=== PATIENT | male | born 1950 | race Caucasian/White ===

== ENCOUNTER → 2018-12-04 | Day surgery (SDC) | payer MEDICARE ==
[~2018-12-04] MED LIST: ESMOLOL HCL 100MG/10ML 10 MG/ML VIAL ONE; FENTANYL CITRATE/PF 100MCG/2 ML INJ ONE; GLUCAGON FOR INJ 1 MG VIAL ONE; IBUPROFEN PO; MIDAZOLAM HCL 2 MG/2 ML VIAL ONE; PROPOFOL IV EMULSION 10 MG/ML 50 ML VIAL ONE
[2018-12-04 14:00] VITALS: BP 115/80
--- NOTE | 2018-12-04 20:13 | Operative Report ---
DATE OF PROCEDURE: 12/04/2018 SURGEON: Manoj Key MD PROCEDURE: Colonoscopy and polypectomy. INDICATIONS FOR COLONOSCOPY: Surveillance colonoscopy, personal history of colon polyps. MEDICATIONS: The patient was done under MAC, please see anesthesiologist's note. PROCEDURE IN DETAIL: With the patient in left lateral decubitus position, the flexible fiberoptic Olympus colonoscope was inserted into the rectum with ease and advanced all the way to the cecum. The scope was then withdrawn slowly. Mucosa overlying the cecum, ascending colon, and transverse colon appeared to be within normal limits. Diverticular disease was noted in the distal descending and the sigmoid colon. One polyp was snared and one polyp was hot biopsied from the sigmoid colon. One polyp was snared and two polyps were hot biopsied from the rectum. The scope was then retroflexed into the distal rectum and moderate-sized internal hemorrhoids were noted, none of which was actively bleeding. The scope was then straightened out, it was subsequently withdrawn. The patient tolerated the procedure well. IMPRESSION: 1. Diverticulosis. 2. Sigmoid colon polyps x2, one snared and one hot biopsied. 3. Rectal polyps x3, one snared and 2 hot biopsied. 4. Internal hemorrhoids, none actively bleeding. PLAN: Follow up histology. Initiate high-fiber, low-fat diet. Initiate high-fiber supplement. The patient might benefit from a followup colonoscopy in 3 years. Manoj Key [place] [facility] [place][phone] cc: Robyn Ramirez MD
--- OUTSIDE RECORDS SUMMARY | 2018-12-05 10:57 | XMS REPORT ---
Author Author Robyn Ramirez Organization [employer] Address Unknown Phone Unavailable Care Team Providers Care Laborer Demolition Name Role Phone Robyn Ramirez CP Unavailable Allergies, Adverse Reactions, Alerts Substance Reaction Event Type N.K.D.A. Info Not Available Non Drug Allergy Problems Problem Type Condition Code Onset Dates Condition Status Assessment Hypertensive heart disease without heart failure I11.9 Active Problem Erectile dysfunction following radical prostatectomy N52.31 Active Assessment Mixed hyperlipidemia E78.2 Active Assessment Calcaneal spur of right foot M77.31 Active Problem Obstructive sleep apnea syndrome G47.33 Active Problem S/P prostatectomy Z90.79 Active Problem Hypertensive heart disease without heart failure I11.9 Active Problem Hyperglycemia R73.9 Active Problem Stress incontinence N39.3 Active Problem Malignant neoplasm of prostate C61 Active Problem Mixed hyperlipidemia E78.2 Active Medications Medication Code System Code Instructions Start Date End Date Status Dosage Lisinopril [facility] 98088399915 10 mg Orally Once a day February 04, 2016 Active 1 tablet Lipitor ND 99022707467 10 mg Orally Once a day November 20, 2017 Active 1 tablet Advil [facility] 71772163223 200 MG Orally every 6 hrs Active 1 capsule as needed Vital Signs Date/Time: December 04, 2017 BMI 29.12 Index Weight 233 lbs Height 75 in Cardiac Monitoring Heart Rate 64 /min Blood Pressure Diastolic 84 mm Hg Blood Pressure Systolic 144 mm Hg Results Name Result Date Reference Range Unit Abnormality Flag Calcaneus- Right Xray Summary Purpose [employer] Submission
--- OUTSIDE RECORDS SUMMARY | 2018-12-05 10:57 | XMS REPORT ---
Author Author Marilou Mojica Organization [employer] Address Unknown Phone Unavailable Care Team Providers Care Shipping Specialist Name Role Phone Marilou Mojica CP Unavailable Encounters Encounter Location Date [facility] November 19, 2015 Problems Problem Type Condition ICD-9 Code Onset Dates Condition Status Assessment Abnormal EKG R94.31 Active Problem Obstructive sleep apnea syndrome G47.33 Active Problem Malignant neoplasm of prostate C61 Active Problem Mixed hyperlipidemia E78.2 Active Problem Elevated blood pressure (not hypertension) R03.0 Active Problem Abnormal EKG R94.31 Active Problem S/P prostatectomy Z90.79 Active Problem BMI 29.0-29.9,adult Z68.29 Active Social History Social History Element Qualifiers Date Reported children . 2 November 01, 2015 Tobacco Use: . Are you a: former smoker November 01, 2015 Marital Status: . 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
--- OUTSIDE RECORDS SUMMARY | 2018-12-05 10:57 | XMS REPORT | Continuity of Care Document ---
Author Author [facility] Interface Address Unknown Phone Unavailable Problems Problem Status Onset Date Classification Date Reported Comments Source C61 - MALIGNANT NEOPLASM OF PROSTATE R31 Active 02/07/2016 [facility] [place] Erectile dysfunction following radical prostatectomy Active Problem 11/23/2018 [facility] Calcaneal spur of right foot Active Diagnosis 02/23/2018 [facility] Obstructive sleep apnea syndrome Active Problem 11/23/2018 [facility] S/P prostatectomy Active Problem 11/23/2018 [facility] Hypertensive heart disease without heart failure Active Problem 11/23/2018 [facility] Hyperglycemia Active Problem 11/23/2018 [facility] Stress incontinence Active Problem 11/23/2018 [facility] Malignant neoplasm of prostate Active Problem 11/23/2018 [facility] Mixed hyperlipidemia Active Problem 11/23/2018 [facility] Physical exam Active Diagnosis 11/19/2018 [facility] Skin tag Active Diagnosis 11/16/2017 [facility] Left lower quadrant pain Active Diagnosis 05/31/2018 [facility] Abnormal EKG Active Diagnosis 11/23/2018 [facility] Elevated blood pressure Active Problem 01/21/2016 [facility] BMI 29.0-29.9,adult Active Problem 01/21/2016 [facility] Sleep apnea syndrome Active Diagnosis 03/29/2016 [facility] Essential hypertension with goal blood pressure less than 130\/85 Active Diagnosis 12/06/2015 [facility] Hematuria Active Problem 08/23/2016 [facility] Cataracts, bilateral Active Problem 08/23/2016 [facility] BMI 28.0-28.9,adult Active Problem 08/23/2016 [facility] Encounter to discuss test results Active Diagnosis 02/08/2016 [facility] Hx of prostatic malignancy Active Problem 11/23/2018 [facility] Aortic dilatation Active Problem 11/23/2018 [facility] Impotence Active Problem 11/23/2018 [facility] Superior glenoid labrum lesion of unspecified shoulder, initial encounter Active Diagnosis 11/19/2018 [facility] Polyp of colon, unspecified part of colon, unspecified type Active Diagnosis 11/19/2018 [facility] Medications Medication Details Route Status Patient Instructions Ordering Provider Order Date Source Cialis 1 tablet Orally Active 20 mg Orally Once a day PRN Ghebranious 11/06/2018 [facility] Lipitor 1 tablet Orally Active 10 mg Orally Once a day LAST REFILL, NEEDS TO BE SEEN Ghebranious 11/20/2017 [facility] Lisinopril 1 tablet Orally Active 10 mg Orally Once a day Ghebranious 02/04/2016 [facility] Lisinopril 1 tablet Orally Active 10 MG Orally Once a day Yunior 02/04/2016 [facility] Advil 1 capsule as needed Orally Active 200 MG Orally every 6 hrs Ghebranious [facility] Advil 1 capsule as needed Orally Active 200 MG Orally every 6 hrs [facility] Atorvastatin Calcium TAKE ONE TABLET BY MOUTH ONCE DAILY FOR 30 DAYS NA Active 20MG [facility] Allergies, Adverse Reactions, Alerts Substance Category Reaction Severity Reaction type Status Date Reported Comments Source N.K.D.A. Adverse Reaction Info Not Available Adverse Reaction Active 11/06/2018 [facility] Immunizations Immunization Date Given Site Status Last Updated Comments Source Results Order Name Results Value Reference Range Date Interpretation Comments Source Abdomen/Pelvis w/wo IV contrast CT Abdomen/Pelvis w/wo IV contrast CT CT ABDOMEN AND PELVIS WITH CONTRAST HISTORY: 65-year-old male with a malignant neoplasm of the prostate and a history of hematuria. Status post prostatectomy in 2009 and completion of radiation therapy September 2010. PROCEDURE: CT scan of the abdomen and pelvis with contrast was done. Creatinine level was 0.9 mg/dl and eGFR was 89 ml/min. Dilute oral and IV contrast, 100 cc Omnipaque 300 used. Postcontrast and delayed series were obtained with coronal and sagittal reformats. The CT dose was 1785 mGy/cm. Comparison: None. Abdomen findings: The bases of both lung appear normal. The liver has normal morphology and homogeneous attenuation. The parenchymal attenuation is low with Hounsfield units in the range of 30-35 consistent with steatosis. The gallbladder and bile ducts are unremarkable. The pancreas has normal attenuation. The spleen has normal volume and expected enhancement. The stomach, duodenum, small bowel, appendiceal region and colon are normal. The appendix is normal. Left renal nonenhancing 1.8 x 1.2 cm area with Hounsfield units lower than 20 suggests a cyst. No lithiasis or obstructive renal disease noted. Renal morphology is otherwise normal. Adrenals have normal morphology. The abdominal aorta and iliac vessels appear normal in caliber. There is no retroperitoneal adenopathy. Osseous structures, segments of the thoracic and lumbar spine appear normal, lower lumbar disc disease noted. Pelvic findings: The urinary bladder is unremarkable with mild thickened martin. Status post prostatectomy. No pelvic mass or enhancing adenopathy is seen. The inguinal regions are negative. IMPRESSION: No acute abdominal or pelvic abnormality. Hepatic steatosis. Left renal 1.8 cm nonenhancing circumscribed mass consistent with a cyst. Status post prostatectomy and the prostate bed is unremarkable. 03/01/2016 - - Read by: Aniceto Back MD Dictated Date/time: 03/01/16 10:24 Electronically Signed by: Aniceto Back 03/01/16 10:36 FINAL REPORT [facility] Vital Signs Vital Sign Value Date Comments Source Weight 238 11/06/2018 [facility] Height 75 11/06/2018 [facility] Heart Rate 82 11/06/2018 [facility] Diastolic (mm Hg) 76 11/06/2018 [facility] Systolic (mm Hg) 124 11/06/2018 [facility] Weight 238 05/14/2018 [facility] Height 75 05/14/2018 [facility] Temperature Oral (F) 97.7 F 05/14/2018 [facility] Heart Rate 70 05/14/2018 [facility] Diastolic (mm Hg) 94 05/14/2018 [facility] Systolic (mm Hg) 150 05/14/2018 [facility] Weight 233 12/04/2017 [facility] Height 75 12/04/2017 [facility] Heart Rate 64 12/04/2017 [facility] Diastolic (mm Hg) 84 12/04/2017 [facility] Systolic (mm Hg) 144 12/04/2017 [facility] Weight 236 11/20/2017 [facility] Height 75 11/20/2017 [facility] Heart Rate 68 11/20/2017 [facility] Diastolic (mm Hg) 76 11/20/2017 [facility] Systolic (mm Hg) 124 11/20/2017 [facility] Weight 232 11/06/2017 [facility] Height 75 11/06/2017 [facility] Heart Rate 68 11/06/2017 [facility] Diastolic (mm Hg) 86 11/06/2017 [facility] Systolic (mm Hg) 144 11/06/2017 [facility] Weight 246 08/21/2016 [facility] Height 75 08/21/2016 [facility] Heart Rate 77 08/21/2016 [facility] Diastolic (mm Hg) 84 08/21/2016 [facility] Systolic (mm Hg) 140 08/21/2016 [facility] Weight 238 07/20/2016 [facility] Height 75 07/20/2016 [facility] Heart Rate 66 07/20/2016 [facility] Diastolic (mm Hg) 88 07/20/2016 [facility] Systolic (mm Hg) 140 07/20/2016 [facility] Weight 234 04/10/2016 [facility] Height 75 04/10/2016 [facility] Heart Rate 70 04/10/2016 [facility] Diastolic (mm Hg) 68 04/10/2016 [facility] Systolic (mm Hg) 105 04/10/2016 [facility] Weight 230 02/04/2016 [facility] Height 75 02/04/2016 [facility] Heart Rate 82 02/04/2016 [facility] Diastolic (mm Hg) 80 02/04/2016 [facility] Systolic (mm Hg) 144 02/04/2016 [facility] Weight 231 01/19/2016 [facility] Height 75 01/19/2016 [facility] Weight 231 12/03/2015 [facility] Height 75 12/03/2015 [facility] Heart Rate 80 12/03/2015 [facility] Diastolic (mm Hg) 80 12/03/2015 [facility] Systolic (mm Hg) 140 12/03/2015 [facility] Encounters Location Location Details Encounter Type Encounter Number Reason For Visit Attending Provider ADM Date DC Date Status Source [facility] E[facility] / [facility] [id number] 11/19/2015 11/19/2015 [facility] / [place] [id number] 11/19/2015 11/19/2015 [facility] ECHO / [place] [id number] 11/19/2015 11/19/2015 [facility] ECHO / [place] [id number] 11/19/2015 11/19/2015 [facility] / [place] [id number] 11/19/2015 11/19/2015 [facility] / [place] [id number] 11/19/2015 11/19/2015 [facility] / [place] [id number] 11/19/2015 11/19/2015 [facility] ECHO / [place] [id number] 11/19/2015 11/19/2015 [facility] ECHO / [place] [id number] 11/19/2015 11/19/2015 [facility] echo / lab results [id number] 12/03/2015 12/03/2015 [facility] echo / lab results [id number] 12/03/2015 12/03/2015 [facility] echo / lab results [id number] 12/03/2015 12/03/2015 [facility] echo / lab results [id number] 12/03/2015 12/03/2015 [facility] echo / lab results [id number] 12/03/2015 12/03/2015 [facility] echo / lab results [id number] 12/03/2015 12/03/2015 [facility] echo / lab results [id number] 12/03/2015 12/03/2015 [facility] echo / lab results [id number] 12/03/2015 12/03/2015 [facility] Home Sleep Study [id number] 12/08/2015 12/08/2015 [facility] Home Sleep Study [id number] 12/08/2015 12/08/2015 [facility] Home Sleep Study [id number] 12/08/2015 12/08/2015 [facility] Home Sleep Study [id number] 12/08/2015 12/08/2015 [facility] Home Sleep Study [id number] 12/08/2015 12/08/2015 [facility] Home Sleep Study [id number] 12/08/2015 12/08/2015 [facility] Home Sleep Study [id number] 12/08/2015 12/08/2015 [facility] Cardiolyte Stress Test [id number] 01/19/2016 01/19/2016 [facility] Cardiolyte Stress Test [id number] 01/19/2016 01/19/2016 [facility] Cardiolyte Stress Test [id number] 01/19/2016 01/19/2016 [facility] Cardiolyte Stress Test [id number] 01/19/2016 01/19/2016 [facility] Cardiolyte Stress Test [id number] 01/19/2016 01/19/2016 [facility] Cardiolyte Stress Test [id number] 01/19/2016 01/19/2016 [facility] Stress test results [id number] 02/04/2016 02/04/2016 [facility] Stress test results [id number] 02/04/2016 02/04/2016 [facility] Stress test results [id number] 02/04/2016 02/04/2016 [facility] Stress test results [id number] 02/04/2016 02/04/2016 [facility] Stress test results [id number] 02/04/2016 02/04/2016 [facility] [id number] Allie Chen 03/01/2016 03/02/2016 [facility] Night 2 Sleep Study [id number] 03/28/2016 03/28/2016 [facility] Night 2 Sleep Study [id number] 03/28/2016 03/28/2016 [facility] Night 2 Sleep Study [id number] 03/28/2016 03/28/2016 [facility] Night 2 Sleep Study [id number] 03/28/2016 03/28/2016 [facility] CPAP Follow Up [id number] 04/10/2016 04/10/2016 [facility] CPAP Follow Up [id number] 04/10/2016 04/10/2016 [facility] CPAP Follow Up [id number] 04/10/2016 04/10/2016 [facility] CPAP follow up [id number] 07/20/2016 07/20/2016 [facility] CPAP follow up [id number] 07/20/2016 07/20/2016 [facility] results follow up [id number] 08/21/2016 08/21/2016 [facility] Outpatient [id number] ALLIE CHEN [facility] Procedure Code Date Perfomer Comments Source
--- OUTSIDE RECORDS SUMMARY | 2018-12-05 10:57 | XMS REPORT ---
Author Author Robyn Ramirez Organization eClinicalWorks Address Unknown Phone Unavailable Care Team Providers Care Netbackup Engineer Name Role Phone Robyn Ramirez CP Unavailable Allergies No Known Allergies Problems Problem Type Condition Code Onset Dates Condition Status Problem Erectile dysfunction following radical prostatectomy N52.31 Active Assessment Calcaneal spur of right foot M77.31 Active Problem Obstructive sleep apnea syndrome G47.33 Active Problem S/P prostatectomy Z90.79 Active Problem Hypertensive heart disease without heart failure I11.9 Active Problem Hyperglycemia R73.9 Active Problem Stress incontinence N39.3 Active Problem Malignant neoplasm of prostate C61 Active Problem Mixed hyperlipidemia E78.2 Active Medications No Known Medications Results No Known Results Summary Purpose eClinicalWorks Submission
--- OUTSIDE RECORDS SUMMARY | 2018-12-05 10:57 | XMS REPORT ---
Author Author Marilou Mojica Organization eClinicalWorks Address Unknown Phone Unavailable Care Team Providers Care Broadband Engineer Name Role Phone Marilou Mojica CP Unavailable Encounters Encounter Location Date ECHO / MARILOU [facility] November 19, 2015 echo / lab results [facility] December 03, 2015 Home Sleep Study [facility] December 08, 2015 Problems Problem Type Condition ICD-9 Code Onset Dates Condition Status Assessment Sleep apnea syndrome G47.30 Active Problem Obstructive sleep apnea syndrome G47.33 Active Problem Malignant neoplasm of prostate C61 Active Problem Mixed hyperlipidemia E78.2 Active Problem Elevated blood pressure (not hypertension) R03.0 Active Problem Abnormal EKG R94.31 Active Problem S/P prostatectomy Z90.79 Active Problem BMI 29.0-29.9,adult Z68.29 Active Medications Medication Code System Code Instructions Start Date End Date Status Dosage Advil MEDISPAN [address]-93 200 MG Orally every 6 hrs Active 1 capsule as needed Social History Social History Element Qualifiers Date Reported children . 2 December 03, 2015 Tobacco Use: . Are you a: former smoker December 03, 2015 Marital Status: . 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
--- OUTSIDE RECORDS SUMMARY | 2018-12-05 10:57 | XMS REPORT ---
Author Author Usman Morgan Organization eClinicalWorks Address Unknown Phone Unavailable Care Team Providers Care Saddle Mechanic Name Role Phone Usman Morgan CP Unavailable Allergies, Adverse Reactions, Alerts Substance Reaction Event Type N.K.D.A. Info Not Available Non Drug Allergy Problems Problem Type Condition Code Onset Dates Condition Status Problem Erectile dysfunction following radical prostatectomy N52.31 Active Assessment Left lower quadrant pain R10.32 Active Problem Obstructive sleep apnea syndrome G47.33 Active Problem S/P prostatectomy Z90.79 Active Problem Hypertensive heart disease without heart failure I11.9 Active Problem Hyperglycemia R73.9 Active Problem Stress incontinence N39.3 Active Problem Malignant neoplasm of prostate C61 Active Problem Mixed hyperlipidemia E78.2 Active Medications Medication Code System Code Instructions Start Date End Date Status Dosage Lisinopril [facility] 43416948823 10 mg Orally Once a day February 04, 2016 Active 1 tablet Lipitor [facility] NAM[facility] 79366824690 10 mg Orally Once a day LAST REFILL, NEEDS TO BE SEEN November 20, 2017 Active 1 tablet Advil [facility] NAMED [facility] 71140538166 200 MG Orally every 6 hrs Active 1 capsule as needed Vital Signs Date/Time: May 14, 2018 BMI 29.74 Index Weight 238 lbs Height 75 in Temperature 97.7 F Cardiac Monitoring Heart Rate 70 /min Blood Pressure Diastolic 94 mm Hg Blood Pressure Systolic 150 mm Hg Results No Known Results Summary Purpose eClinicalWorks Submission
--- OUTSIDE RECORDS SUMMARY | 2018-12-05 10:57 | XMS REPORT ---
Author Author Marilou Mojica [facility] eClinicalWorks Address Unknown Phone Unavailable Care Team Providers Care Cleaning Associate Name Role Phone Marilou Mojica CP Unavailable Encounters Encounter Location Date Cardiolyte Stress Test [facility] January 19, 2016 Stress test results [facility] February 04, 2016 Night 2 Sleep Study [facility] Mar 27, 2016 ECHO / MARILOU [facility] November 19, 2015 echo / lab results [facility] December 03, 2015 Home Sleep Study [facility] December 08, 2015 Problems Problem Type Condition ICD-9 Code Onset Dates Condition Status Problem Abnormal EKG R94.31 Active Assessment Sleep apnea syndrome G47.30 Active Problem Hypertensive heart disease without heart failure I11.9 Active Problem BMI 28.0-28.9,adult Z68.28 Active Problem Hematuria R31.9 Active Problem Malignant neoplasm of prostate C61 Active Problem S/P prostatectomy Z90.79 Active Problem Mixed hyperlipidemia E78.2 Active Problem Obstructive sleep apnea syndrome G47.33 Active Medications Medication Code System Code Instructions Start Date End Date Status Dosage Advil MEDISPAN [address]-18 200 MG Orally every 6 hrs Active 1 capsule as needed Lisinopril MEDISPAN [address]-12 10 mg Orally Once a day February 04, 2016 Active 1 tablet Social History Social History Element Qualifiers Date Reported Ethnicity . Status , Is khmer your primary language? Yes February 04, 2016 children . 2 February 04, 2016 Tobacco Use: . Are you a: former smoker February 04, 2016 Marital Status: . Aparna February 04, 2016 Caffeine intake? . Status: Yes February 04, 2016 Do you exercise? . 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
--- OUTSIDE RECORDS SUMMARY | 2018-12-05 10:57 | XMS REPORT ---
Author Author Marilou Mojica [facility] eClinicalWorks Address Unknown Phone Unavailable Care Team Providers Care Charge Weigher Name Role Phone Marilou Mojica CP Unavailable Allergies, Adverse Reactions, Alerts Substance Reaction Event Type N.K.D.A. Info Not Available Non Drug Allergy Encounters Encounter Location Date Cardiolyte Stress Test [facility] January 19, 2016 Stress test results [facility] February 04, 2016 Night 2 Sleep Study [facility] Mar 27, 2016 CPAP Follow Up [facility] Apr 10, 2016 ECHO / MARILOU [facility] November 19, 2015 echo / lab results [facility] December 03, 2015 Home Sleep Study [facility] December 08, 2015 Problems Problem Type Condition ICD-9 Code Onset Dates Condition Status Assessment Obstructive sleep apnea syndrome G47.33 Active Problem S/P prostatectomy Z90.79 Active Problem Abnormal EKG R94.31 Active Assessment Cataracts, bilateral H26.9 Active Assessment Hypertensive heart disease without heart failure I11.9 Active Problem Hematuria R31.9 Active Problem Hypertensive heart disease without heart failure I11.9 Active Problem Cataracts, bilateral H26.9 Active Problem Obstructive sleep apnea syndrome G47.33 Active Problem Malignant neoplasm of prostate C61 Active Problem BMI 28.0-28.9,adult Z68.28 Active Problem Mixed hyperlipidemia E78.2 Active Medications Medication Code System Code Instructions Start Date End Date Status Dosage Advil MEDISPAN [address]-98 200 MG Orally every 6 hrs Active 1 capsule as needed Lisinopril MEDISPAN [address]-69 10 mg Orally Once a day February 04, 2016 Active 1 tablet Social History Social History Element Qualifiers Date Reported Ethnicity . Status , Is burundian your primary language? Yes Apr 10, 2016 children . 2 Apr 10, 2016 Tobacco Use: . Are you a: former smoker Apr 10, 2016 Marital Status: . Aparna Apr 10, 2016 Caffeine intake? . Status: Yes Apr 10, 2016 Do you exercise? . Answer: No Apr 10, 2016 Occupation: . [employer]. Apr 10, 2016 Vital Signs Date/Time: Apr 10, 2016 Weight 234 lbs Height 75 in Cardiac Monitoring Heart Rate 70 /min Blood Pressure Diastolic 68 mm Hg Blood Pressure Systolic 105 mm Hg Summary Purpose eClinicalWorks Submission
--- OUTSIDE RECORDS SUMMARY | 2018-12-05 10:57 | XMS REPORT ---
Author Author Robyn Ramirez Organization eClinicalWorks Address Unknown Phone Unavailable Care Team Providers Care Relationship Executive Name Role Phone Robyn Ramirez CP Unavailable Allergies No Known Allergies Problems Problem Type Condition Code Onset Dates Condition Status Problem Erectile dysfunction following radical prostatectomy N52.31 Active Assessment Hypertensive heart disease without heart failure I11.9 Active Problem Obstructive sleep apnea syndrome G47.33 Active Problem S/P prostatectomy Z90.79 Active Problem Hypertensive heart disease without heart failure I11.9 Active Problem Hyperglycemia R73.9 Active Problem Stress incontinence N39.3 Active Problem Malignant neoplasm of prostate C61 Active Problem Mixed hyperlipidemia E78.2 Active Medications Medication Code System Code Instructions Start Date End Date Status Dosage Lipitor [facility] 35521802338 10 mg Orally Once a day LAST REFILL, NEEDS TO BE SEEN November 20, 2017 Active 1 tablet Results No Known Results Summary Purpose eClinicalWorks Submission
--- OUTSIDE RECORDS SUMMARY | 2018-12-05 10:57 | XMS REPORT ---
Author Author Marilou Mojica Organization eClinicalWorks Address Unknown Phone Unavailable Care Team Providers Care Bariatric Surgeon Name Role Phone Marilou Mojica CP Unavailable Allergies, Adverse Reactions, Alerts Substance Reaction Event Type N.K.D.A. Info Not Available Non Drug Allergy Encounters Encounter Location Date ECHO / MARILOU [facility] November 19, 2015 echo / lab results [facility] December 03, 2015 Problems Problem Type Condition ICD-9 Code Onset Dates Condition Status Assessment Mixed hyperlipidemia E78.2 Active Assessment Obstructive sleep apnea syndrome G47.33 Active Assessment Abnormal EKG R94.31 Active Assessment Essential hypertension with goal blood pressure less than 130\/85 I10 Active Problem Obstructive sleep apnea syndrome G47.33 Active Problem Malignant neoplasm of prostate C61 Active Problem Mixed hyperlipidemia E78.2 Active Problem Elevated blood pressure (not hypertension) R03.0 Active Problem Abnormal EKG R94.31 Active Problem S/P prostatectomy Z90.79 Active Problem BMI 29.0-29.9,adult Z68.29 Active Medications Medication Code System Code Instructions Start Date End Date Status Dosage Atorvastatin Calcium MEDISPAN [id number] 20MG Active TAKE ONE TABLET BY MOUTH ONCE DAILY FOR 30 DAYS Advil MEDISPAN [address]-03 200 MG Orally every 6 hrs Active 1 capsule as needed Social History Social History Element Qualifiers Date Reported children . 2 December 03, 2015 Tobacco Use: . Are you a: former smoker December 03, 2015 Marital Status: . Aparna December 03, 2015 Occupation: . Sporting Goods Sales Manager. December 03, 2015 Vital Signs Date/Time: December 03, 2015 Weight 231 lbs Height 75 in Cardiac Monitoring Heart Rate 80 /min Blood Pressure Diastolic 80 mm Hg Blood Pressure Systolic 140 mm Hg Summary Purpose eClinicalWorks Submission
--- OUTSIDE RECORDS SUMMARY | 2018-12-05 10:57 | XMS REPORT ---
Author Author Robyn Ramirez Organization eClinicalWorks Address Unknown Phone Unavailable Care Team Providers Care Production Coordinator Name Role Phone Robyn Ramirez CP Unavailable Allergies, Adverse Reactions, Alerts Substance Reaction Event Type N.K.D.A. Info Not Available Non Drug Allergy Problems Problem Type Condition Code Onset Dates Condition Status Problem Erectile dysfunction following radical prostatectomy N52.31 Active Problem Mixed hyperlipidemia E78.2 Active Problem Stress incontinence N39.3 Active Problem Hx of prostatic malignancy Z85.46 Active Assessment Abnormal EKG R94.31 Active Problem Aortic dilatation I77.819 Active Assessment Impotence N52.9 Active Problem Impotence N52.9 Active Problem S/P prostatectomy Z90.79 Active Problem Malignant neoplasm of prostate C61 Active Problem Hypertensive heart disease without heart failure I11.9 Active Problem Obstructive sleep apnea syndrome G47.33 Active Assessment Aortic dilatation I77.819 Active Assessment Hx of prostatic malignancy Z85.46 Active Assessment Superior glenoid labrum lesion of unspecified shoulder, initial encounter S43.439A Active Assessment Polyp of colon, unspecified part of colon, unspecified type K63.5 Active Assessment Colon cancer screening Z12.11 Active Assessment Physical exam Z00.00 Active Assessment Hyperglycemia R73.9 Active Assessment Mixed hyperlipidemia E78.2 Active Problem Hyperglycemia R73.9 Active Medications Medication Code System Code Instructions Start Date End Date Status Dosage Advil [facility] 16140514534 200 MG Orally every 6 hrs Active 1 capsule as needed Cialis ND 13742514870 20 mg Orally Once a day PRN November 06, 2018 February 04, 2019 Active 1 tablet Lipitor ND 48728514612 10 mg Orally Once a day LAST REFILL, NEEDS TO BE SEEN November 20, 2017 Active 1 tablet Lisinopril ND 84744270554 10 mg Orally Once a day February 04, 2016 Active 1 tablet Vital Signs Date/Time: November 06, 2018 BMI 29.74 Index Weight 238 lbs Height 75 in Cardiac Monitoring Heart Rate 82 /min Blood Pressure Diastolic 76 mm Hg Blood Pressure Systolic 124 mm Hg Results Name Result Date Reference Range Unit Abnormality Flag Chest 2 views- Xray Summary Purpose eClinicalWorks Submission
--- OUTSIDE RECORDS SUMMARY | 2018-12-05 10:57 | XMS REPORT ---
Author Author Marilou Mojica [facility] eClinicalWorks Address Unknown Phone Unavailable Care Team Providers Care Recreation Center Director Name Role Phone Marilou Mojica Unavailable Allergies, Adverse Reactions, Alerts Substance Reaction Event Type N.K.D.A. Info Not Available Non Drug Allergy Encounters Encounter Location Date Cardiolyte Stress Test [facility] January 19, 2016 Stress test results [facility] February 04, 2016 ECHO / MARILOU [facility] November 19, 2015 echo / lab results [facility] December 03, 2015 Home Sleep Study [facility] December 08, 2015 Problems Problem Type Condition ICD-9 Code Onset Dates Condition Status Assessment Malignant neoplasm of prostate C61 Active Problem Abnormal EKG R94.31 Active Assessment Hypertensive heart disease without heart failure I11.9 Active Problem Hypertensive heart disease without heart failure I11.9 Active Problem BMI 28.0-28.9,adult Z68.28 Active Problem Hematuria R31.9 Active Problem Malignant neoplasm of prostate C61 Active Problem S/P prostatectomy Z90.79 Active Problem Mixed hyperlipidemia E78.2 Active Problem Obstructive sleep apnea syndrome G47.33 Active Assessment Hematuria R31.9 Active Assessment Encounter to discuss test results Z71.89 Active Assessment Mixed hyperlipidemia E78.2 Active Assessment BMI 28.0-28.9,adult Z68.28 Active Assessment Obstructive sleep apnea syndrome G47.33 Active Medications Medication Code System Code Instructions Start Date End Date Status Dosage Lisinopril MEDISPAN [address]-15 10 mg Orally Once a day February 04, 2016 Active 1 tablet Advil MEDISPAN [address]-12 200 MG Orally every 6 hrs Active 1 capsule as needed Social History Social History Element Qualifiers Date Reported Ethnicity . Status , Is moldovan your primary language? Yes February 04, 2016 children . 2 February 04, 2016 Tobacco Use: . Are you a: former smoker February 04, 2016 Marital Status: . Aparna February 04, 2016 Caffeine intake? . Status: Yes February 04, 2016 Do you exercise? . Answer: No February 04, 2016 Occupation: . Administrative Services Manager. February 04, 2016 Family history Qualifier Description Comment Date Reported Maternal Grandmother Comment not available February 04, 2016 Paternal Grandmother Comment not available February 04, 2016 Siblings Sister - mental illness February 04, 2016 Maternal Grandfather Comment not available February 04, 2016 Children Comment not available February 04, 2016 Father Colon cancer, heart disease February 04, 2016 Paternal Grandfather Comment not available February 04, 2016 Mother Breast cancer February 04, 2016 Other: Comment not available February 04, 2016 Vital Signs Date/Time: February 04, 2016 Weight 230 lbs Height 75 in Cardiac Monitoring Heart Rate 82 /min Blood Pressure Diastolic 80 mm Hg Blood Pressure Systolic 144 mm Hg Summary Purpose eClinicalWorks Submission
--- OUTSIDE RECORDS SUMMARY | 2018-12-05 10:57 | XMS REPORT ---
Author Author Robyn Ramirez Organization eClinicalWorks Address Unknown Phone Unavailable Care Team Providers Care Beauty Consultant Name Role Phone Robyn Ramirez CP Unavailable Allergies, Adverse Reactions, Alerts Substance Reaction Event Type N.K.D.A. Info Not Available Non Drug Allergy Problems Problem Type Condition Code Onset Dates Condition Status Assessment Colon cancer screening Z12.11 Active Problem Erectile dysfunction following radical prostatectomy N52.31 Active Assessment Physical exam Z00.00 Active Problem Obstructive sleep apnea syndrome G47.33 Active Problem S/P prostatectomy Z90.79 Active Problem Hypertensive heart disease without heart failure I11.9 Active Problem Hyperglycemia R73.9 Active Problem Stress incontinence N39.3 Active Problem Malignant neoplasm of prostate C61 Active Problem Mixed hyperlipidemia E78.2 Active Assessment Skin tag L91.8 Active Assessment Mixed hyperlipidemia E78.2 Active Assessment Obstructive sleep apnea syndrome G47.33 Active Assessment Hypertensive heart disease without heart failure I11.9 Active Assessment S/P prostatectomy Z90.79 Active Assessment Hyperglycemia R73.9 Active Assessment Malignant neoplasm of prostate C61 Active Medications Medication Code System Code Instructions Start Date End Date Status Dosage Advil [facility] 33287884198 200 MG Orally every 6 hrs Active 1 capsule as needed Lisinopril [facility] 54957085238 10 mg Orally Once a day February 04, 2016 Active 1 tablet Vital Signs Date/Time: November 06, 2017 BMI 28.99 Index Weight 232 lbs Height 75 in Cardiac Monitoring Heart Rate 68 /min Blood Pressure Diastolic 86 mm Hg Blood Pressure Systolic 144 mm Hg Results No Known Results Summary Purpose eClinicalWorks Submission
--- OUTSIDE RECORDS SUMMARY | 2018-12-05 10:57 | XMS REPORT ---
Author Author Robyn Ramirez [facility] eClinicalWorks Address Unknown Phone Unavailable Care Team Providers Care Medical Logistics Specialist Name Role Phone Robyn Ramirez CP Unavailable Allergies, Adverse Reactions, Alerts Substance Reaction Event Type N.K.D.A. Info Not Available Non Drug Allergy Problems Problem Type Condition Code Onset Dates Condition Status Assessment Hypertensive heart disease without heart failure I11.9 Active Problem Erectile dysfunction following radical prostatectomy N52.31 Active Assessment Mixed hyperlipidemia E78.2 Active Assessment Obstructive sleep apnea syndrome G47.33 Active Problem Obstructive sleep apnea syndrome G47.33 Active Problem S/P prostatectomy Z90.79 Active Problem Hypertensive heart disease without heart failure I11.9 Active Problem Hyperglycemia R73.9 Active Problem Stress incontinence N39.3 Active Problem Malignant neoplasm of prostate C61 Active Problem Mixed hyperlipidemia E78.2 Active Medications Medication Code System Code Instructions Start Date End Date Status Dosage Lipitor [facility] 58006067658 10 mg Orally Once a day November 20, 2017 Active 1 tablet Lisinopril [facility] 49400232814 10 mg Orally Once a day February 04, 2016 Active 1 tablet Advil [facility] 33036189441 200 MG Orally every 6 hrs Active 1 capsule as needed Vital Signs Date/Time: November 20, 2017 BMI 29.49 Index Weight 236 lbs Height 75 in Cardiac Monitoring Heart Rate 68 /min Blood Pressure Diastolic 76 mm Hg Blood Pressure Systolic 124 mm Hg Results No Known Results Summary Purpose eClinicalWorks Submission
--- OUTSIDE RECORDS SUMMARY | 2018-12-05 10:57 | XMS REPORT ---
Author Author Robyn Ramirez Organization eClinicalWorks Address Unknown Phone Unavailable Care Team Providers Care Precise Winder Name Role Phone Robyn Ramirez CP Unavailable Allergies, Adverse Reactions, Alerts Substance Reaction Event Type N.K.D.A. Info Not Available Non Drug Allergy Encounters Encounter Location Date Cardiolyte Stress Test [facility] January 19, 2016 ECHO / TERESA [facility] November 19, 2015 echo / lab results [facility] December 03, 2015 Home Sleep Study [facility] December 08, 2015 Problems Problem Type Condition ICD-9 Code Onset Dates Condition Status Assessment Abnormal EKG R94.31 Active Assessment Mixed hyperlipidemia E78.2 Active Problem Obstructive sleep apnea syndrome G47.33 Active Problem Malignant neoplasm of prostate C61 Active Problem Mixed hyperlipidemia E78.2 Active Problem Elevated blood pressure (not hypertension) R03.0 Active Problem Abnormal EKG R94.31 Active Problem S/P prostatectomy Z90.79 Active Problem BMI 29.0-29.9,adult Z68.29 Active Medications Medication Code System Code Instructions Start Date End Date Status Dosage Advil MEDISPAN [address]-65 200 MG Orally every 6 hrs Active 1 capsule as needed Social History Social History Element Qualifiers Date Reported children . 2 January 19, 2016 Tobacco Use: . Are you a: former smoker January 19, 2016 Marital Status: . 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
--- OUTSIDE RECORDS SUMMARY | 2018-12-05 10:57 | XMS REPORT ---
Author Author Robyn Ramirez Organization [employer] Address Unknown Phone Unavailable Care Team Providers Care Wilton Weaver Name Role Phone Robyn Ramirez CP Unavailable Allergies No Known Allergies Problems Problem Type Condition Code Onset Dates Condition Status Problem Erectile dysfunction following radical prostatectomy N52.31 Active Problem Mixed hyperlipidemia E78.2 Active Problem Stress incontinence N39.3 Active Assessment Abnormal EKG R94.31 Active Problem Hyperglycemia R73.9 Active Problem Hx of prostatic malignancy Z85.46 Active Problem Aortic dilatation I77.819 Active Problem Impotence N52.9 Active Problem S/P prostatectomy Z90.79 Active Problem Malignant neoplasm of prostate C61 Active Problem Hypertensive heart disease without heart failure I11.9 Active Problem Obstructive sleep apnea syndrome G47.33 Active Medications Medication Code System Code Instructions Start Date End Date Status Dosage Lipitor [facility] 15000618492 10 mg Orally Once a day LAST REFILL, NEEDS TO BE SEEN November 20, 2017 Active 1 tablet Advil [facility] 17796616922 200 MG Orally every 6 hrs Active 1 capsule as needed Cialis ND 05496202254 20 mg Orally Once a day PRN November 06, 2018 February 04, 2019 Active 1 tablet Lisinopril [facility] 07452807729 10 mg Orally Once a day February 04, 2016 Active 1 tablet Results No Known Results Summary Purpose [employer] Submission
--- OUTSIDE RECORDS SUMMARY | 2018-12-05 10:57 | XMS REPORT ---
Author Author Aparna Rader Organization [employer] Address Unknown Phone Unavailable Care Team Providers Care Senior Environmental Consultant Name Role Phone Aparna Rader CP Unavailable Allergies No Known Allergies Problems Problem Type Condition Code Onset Dates Condition Status Problem Erectile dysfunction following radical prostatectomy N52.31 Active Problem Obstructive sleep apnea syndrome G47.33 Active Problem S/P prostatectomy Z90.79 Active Problem Hypertensive heart disease without heart failure I11.9 Active Problem Hyperglycemia R73.9 Active Problem Stress incontinence N39.3 Active Problem Malignant neoplasm of prostate C61 Active Problem Mixed hyperlipidemia E78.2 Active Medications No Known Medications Results No Known Results Summary Purpose [employer] Submission
--- OUTSIDE RECORDS SUMMARY | 2018-12-05 10:58 | XMS REPORT | Summary of Care ---
Author Author [facility] [place] Organization [facility] [place] Address Unknown Phone Unavailable Encounter HQ Encntr_alias(FIN) [id number] Date(s): 03/01/16 - 03/01/16 [facility] [place] [address] [place] [address] [phone] Discharge Disposition: Home or Self Care Attending Physician: Miky Wolf MD Vital Signs No data available for this section Problem List No data available for this section Allergies, Adverse Reactions, Alerts No data available for this section Medications No data available for this section Results No data available for this section Immunizations No data available for this section Procedures No data available for this section Social History No data available for this section Assessment and Plan No data available for this section
--- OUTSIDE RECORDS SUMMARY | 2018-12-05 10:58 | XMS REPORT ---
Author Author Marilou Mojica [facility] [employer] Address Unknown Phone Unavailable Care Team Providers Care Customs And Border Protection Inspector Name Role Phone Marilou Mojica Unavailable Allergies, Adverse Reactions, Alerts Substance Reaction Event Type N.K.D.A. Info Not Available Non Drug Allergy Encounters Encounter Location Date Cardiolyte Stress Test [facility] January 19, 2016 Stress test results [facility] February 04, 2016 Night 2 Sleep Study [facility] Mar 27, 2016 CPAP Follow Up [facility] Apr 10, 2016 ECHO / MARILOU [facility] November 19, 2015 echo / lab results [facility] December 03, 2015 Home Sleep Study [facility] December 08, 2015 CPAP follow up [facility] Jul 20, 2016 results follow up [facility] Aug 21, 2016 Problems Problem Type Condition ICD-9 Code Onset Dates Condition Status Problem Hyperglycemia R73.9 Active Problem S/P prostatectomy Z90.79 Active Problem Abnormal EKG R94.31 Active Problem Hematuria R31.9 Active Problem Hypertensive heart disease without heart failure I11.9 Active Problem Cataracts, bilateral H26.9 Active Problem Obstructive sleep apnea syndrome G47.33 Active Problem Malignant neoplasm of prostate C61 Active Problem BMI 28.0-28.9,adult Z68.28 Active Problem Mixed hyperlipidemia E78.2 Active Assessment Hyperglycemia R73.9 Active Assessment Mixed hyperlipidemia E78.2 Active Assessment Hypertensive heart disease without heart failure I11.9 Active Medications Medication Code System Code Instructions Start Date End Date Status Dosage Lisinopril MEDISPAN [address]-73 10 MG Orally Once a day February 04, 2016 Active 1 tablet Advil MEDISPAN [address]-08 200 MG Orally every 6 hrs Active 1 capsule as needed Social History Social History Element Qualifiers Date Reported Ethnicity . Status , Is occitan your primary language? Yes Aug 21, 2016 children . 2 Aug 21, 2016 Tobacco Use: . Are you a: former smoker Aug 21, 2016 Marital Status: . Aparna Aug 21, 2016 Caffeine intake? . Status: Yes Aug 21, 2016 Do you exercise? . Answer: No Aug 21, 2016 Occupation: . [employer]. Aug 21, 2016 Vital Signs Date/Time: Aug 21, 2016 Weight 246 lbs Height 75 in Cardiac Monitoring Heart Rate 77 /min Blood Pressure Diastolic 84 mm Hg Blood Pressure Systolic 140 mm Hg Summary Purpose [employer] Submission
--- OUTSIDE RECORDS SUMMARY | 2018-12-05 10:58 | XMS REPORT ---
Author Author Marilou Mojica [facility] [employer] Address Unknown Phone Unavailable Care Team Providers Care National Sales Representative Name Role Phone Marilou Mojica CP Unavailable Allergies, Adverse Reactions, Alerts Substance Reaction Event Type N.K.D.A. Info Not Available Non Drug Allergy Encounters Encounter Location Date Cardiolyte Stress Test [facility] January 19, 2016 Stress test results [facility] February 04, 2016 Night 2 Sleep Study [facility] Mar 27, 2016 CPAP Follow Up [facility] Apr 10, 2016 ECHO / MARILOU [facility] November 19, 2015 echo / lab results [facility] December 03, 2015 Home Sleep Study [facility] December 08, 2015 CPAP follow up [facility] Jul 20, 2016 Problems Problem Type Condition ICD-9 Code [...] Active Problem Mixed hyperlipidemia E78.2 Active Assessment Malignant neoplasm of prostate C61 Active Assessment Mixed hyperlipidemia E78.2 Active Assessment Hypertensive heart disease without heart failure I11.9 Active Medications Medication Code System Code Instructions Start Date End Date Status Dosage Advil MEDISPAN [address]-64 200 MG Orally every 6 hrs Active 1 capsule as needed Lisinopril MEDISPAN [address]-91 10 mg Orally Once a day February 04, 2016 Active 1 tablet Lisinopril MEDISPAN [address]-06 10 MG Orally Once a day February 04, 2016 Active 1 tablet Social History Social History Element Qualifiers Date Reported Ethnicity . Status , Is macanese your primary language? Yes Jul 20, 2016 children . 2 Jul 20, 2016 Tobacco Use: . Are you a: former smoker Jul 20, 2016 Marital Status: . Aparna Jul 20, 2016 Caffeine intake? . Status: Yes Jul 20, 2016 Do you exercise? . 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
== END | disposition home or self-care (01) ==
LOC: OR 10:14
PROVIDERS: ATTEND Internal Medicine Gastroenterology
DX: Z09 Encounter for follow-up examination after completed treatment for conditions other than malignant neoplasm (principal); K63.5 Polyp of colon; K62.1 Rectal polyp; K57.30 Diverticulosis of large intestine without perforation or abscess without bleeding; K64.8 Other hemorrhoids; G47.33 Obstructive sleep apnea (adult) (pediatric); E78.00 Pure hypercholesterolemia, unspecified; M19.90 Unspecified osteoarthritis, unspecified site; R03.0 Elevated blood-pressure reading, without diagnosis of hypertension; Z68.29 Body mass index [BMI] 29.0-29.9, adult; Z85.46 Personal history of malignant neoplasm of prostate; Z80.0 Family history of malignant neoplasm of digestive organs
CPT/HCPCS: 45384; 45385; 88305; J1610; J2250; J2704; 45378